=== PATIENT | female | born 1980 | race Caucasian/White ===

== ENCOUNTER 2017-05-07 21:09 | Emergency (ER) | payer OTHER ==
[~2017-05-07] VITALS: Ht 177.8 cm; Wt 77.1 kg
--- NOTE | ~2017-05-07 | EKG ---
PATIENT: RODRIGUEZ WILDER UNIT #: [id number] Ventricular Rate: 73 BPM Atrial Rate: 73 BPM P-R Interval: 152 ms QRS Duration: 80 ms Q-T Interval: 380 ms QTC Calculation(Bezet): 418 ms P [place]: 8 degrees Calculated R [place]: -4 degrees Calculated T [place]: 20 degrees Diagnosis Line: Normal sinus rhythm Diagnosis Line: Normal ECG Diagnosis Line: No previous ECGs available Diagnosis Line: Confirmed by NOVA PRECIADO MD ([id number]) on Diagnosis Line: 05/08/2017 12:39:28 PM INTERPRETING MD: OZZY SAM
--- NOTE | ~2017-05-07 | CT71 ---
[facility] A Service of [facility] & [facility] RADIOLOGY TEXT RESULTS PATIENT: RODRIGUEZ WILDER LOCATION: SED : 82 UNIT #: [id number] AGE: [address]: Darrion Marcum MD SEX: F ORDER DR: [id number] [address] [address] [id number] MR#: [id number] #: [id number] NAME: RODRIGUEZ WILDER : 1980 SEX: F STUDY DATE/TIME: 05/07/2017 22:28 UNIT: SED ROOM: STUDY DESCRIPTION: CT Head Wo Contrast Attending Physician: Darrion Marcum M.D. Ordering Physician: Darrion Marcum M.D. MEDICAL IMAGING REPORT This report is preliminary unless electronic signature is present. EXAM CT head, 05/07/2017. HISTORY Dizzy, short of air and disoriented. Two days duration. Prior history of hydrocephalus. TECHNIQUE CT head performed skull base through vertex without intravenous contrast. This CT exam was performed with one or more of the following radiation dose reduction techniques: automatic exposure control, adjustment of mA and/or kV according to patient size, and iterative reconstruction. COMPARISON No prior studies for comparison. Comparison with prior studies is strongly recommended. FINDINGS The brainstem is unremarkable. The cerebellum is normal in appearance. The cerebral hemispheres show overall preservation of jin matter-white matter differentiation. The patient has a right transparietal ventriculoperitoneal shunt which appears to terminate in the right paracentral frontal lobe region. I favor it terminates in the anterior body of the right lateral ventricle but the exact location of the tip is somewhat unclear. There is certainly no hydrocephalus. The ventricles are small in caliber overall. There is no sulcal or cisternal distension. In the posterior right thalamus, there is a somewhat linear calcification measuring about 8-9 mm in diameter. More anteriorly in the right thalamus immediately subjacent to the ventricular shunt catheter, there is an area of increased density overall measuring 1.5 cm x 7-8 mm. Along the medial and lateral aspects of this focus, there are dense calcifications. In the central portion of this focus, there is an area of hyperdensity but not STS. [facility] A Service of [facility] & [facility] RADIOLOGY TEXT RESULTS PATIENT: RODRIGUEZ WILDER LOCATION: SED : [birth year] UNIT #: [id number] AGE: [address]: Darrion Marcum MD SEX: F ORDER DR: clearly calcific density measuring 5-7 mm in diameter. Exact nature of this 5-7 mm hyperdensity unclear. There is no associated mass effect or surrounding edema. I cannot strictly exclude a focus of hemorrhage, though I favor that this is some form of change or parenchymal calcification. Comparison with prior studies strongly recommended. In the absence of prior studies for comparison, further assessment with MRI or short interval CT followup recommended. Remainder of basal ganglia unremarkable. There is no intra or extraaxial mass effect. The midline structures are nondisplaced. The intraorbital soft tissues are unremarkable. The visualized paranasal sinuses and mastoid air cells are clear. IMPRESSION 1. Finding discussed with Dr. Marcum immediately prior to this dictation. The patient has a right transparietal ventricular shunt. The tip terminates to the right of midline in the anterior frontal region. Precise termination point somewhat unclear but I favor that it terminates in the anterior body of the right lateral ventricle. There is no hydrocephalus. Overall, the ventricles appear somewhat diminished in overall caliber. Comparison with any prior studies would be useful to assess for chronicity of the low caliber ventricles. 2. In the right thalamus posteriorly, there is a linear 8-9 mm calcification. Just anterior to this dense calcification immediately subjacent to the ventricular catheter, there is an area of increased density measuring 7-15 mm in overall diameter. At its medial and lateral aspects, there are dense coarse calcifications. More centrally, there is a 5-7 mm of hyperdensity but not clearly calcific density. This 5-7 mm focus of increased density is of unclear etiology. It exerts no mass effect and there is no adjacent edema. I favor that it is fainter calcification, but I cannot strictly exclude a small focus of hemorrhage. Again, comparison with prior examinations would be useful. In the absence of prior studies to clarify this finding, I would recommend further evaluation with either MRI or short interval CT followup. Possibility of partially calcified thalamic neoplastic lesion is felt unlikely given lack of edema or mass effect. 3. Remainder of the cerebral hemispheres unremarkable. 4. See remainder of ancillary findings above. Dictated by... Darrion Gonzales M.D. THIS IS AN ELECTRONICALLY VERIFIED REPORT Darrion Gonzales M.D. at 05/10/2017 7:36 AM JSK/danaw [facility]. [facility] A Service of [facility] & [facility] RADIOLOGY TEXT RESULTS PATIENT: RODRIGUEZ WILDER LOCATION: [facility] : [birth year] UNIT #: [id number] AGE: [address]: Darrion Marcum MD SEX: F ORDER DR: TD: 05/08/2017 10:23 JOB #: [id number] MEDICAL IMAGING REPORT Page 1 of 1
[2017-05-07 22:23] LABS: URINE SOURCE CLEAN CATCH
[2017-05-07 22:25] LABS: URINE APPEARANCE CLEAR; URINE BLOOD NEG (NEG); URINE COLOR YELLOW; URINE GLUCOSE NEG (NORM); URINE KETONE TRACE (NEG); URINE LEUKOCYTE ESTERASE 1+ (NEG); URINE NITRATE NEG (NEG); URINE PH 6.5 (5-8); URINE PROTEIN TRACE (NEG); URINE SPECIFIC GRAVITY 1.025 (1.003-1.035)
[2017-05-07 22:27] LABS: MICRO INDICATED? YES; URINE BILIRUBIN NEG (NEG)
[2017-05-07 22:27] LABS: BASOPHIL% 0.4 % (0-2.5); DIFF IND NO; EOSINOPHIL# 0.1 X10e3 (0-0.7); HEMATOCRIT 40.3 % (35.0-45.0); HEMOGLOBIN 13.9 gm/dL (12.0-16.0); LYMPHOCYTE% 30.7 % (17.0-45.0); MEAN CELL VOLUME 90.3 FL (83-96); MEAN CORPUSCULAR HEMOGLOBIN 31.1 PG (28-34); MEAN CORPUSCULAR HGB CONC 34.5 g/dL (30-36); MEAN PLATELET VOLUME 9.7 FL (6.5-11.5); MONOCYTE# 0.4 X10e3 (0-1.0); MONOCYTE% 6.6 % (3.0-12.0); NEUTROPHIL# 3.9 X10e3 (1.5-7.1); NEUTROPHIL% 61.3 % (40-75); PLATELET COUNT 281 X10e3 (140-420); RED BLOOD COUNT 4.46 X10e (3.90-5.30); RED CELL DISTRIBUTION WIDTH 12.4 % (11.0-15.5); WHITE BLOOD COUNT 6.4 X10e3 (4.0-10.5)
[2017-05-07 22:28] LABS: URINE RBC 0-2 /[HPF] (0-2)
[2017-05-07 22:29] LABS: CULTURE INDICATED? YES; URINE BACTERIA 1+ (NEG); URINE CRYSTALS CALCIUM OXALATE /[HPF]; URINE MUCUS PRESENT; URINE SQUAMOUS EPITHELIAL CELL MODERATE /[HPF]
[2017-05-07 22:36] LABS: AMPHETAMINE NEG (NEG); BARBITURATES NEG (NEG); BENZODIAZEPINES NEG (NEG); COCAINE NEG (NEG); MARIJUANA NEG (NEG); OPIATES NEG (NEG); TRICYCLIC ANTIDEPRESSANTS NEG (NEG); U METHADONE NEG (NEG)
[2017-05-07 22:41] LABS: CALCIUM SERUM 8.9 mg/dL (8.4-10.2); GLOM FILT RATE Estimated 72.5 mL/min (>60); POTASSIUM 3.5 mmol/L (3.5-5.1)
[2017-05-07 23:23] LABS: INR 1.1; PROTHROMBIN TIME (PATIENT) 12.3 SECONDS (9.5-12.4)
[2017-05-07 23:30] LABS: PARTIAL THROMBOPLASTIN TIME 27.2 SECONDS (25.6-38.1)
[2017-05-09 14:26] LABS: POC - CKMB <1.0 ng/mL (0.0-7.9); POC - TROPONIN <0.05 ng/mL (<=0.05)
== END 2017-05-08 01:16 | disposition home or self-care (01) ==
LOC: SED 21:09
PROVIDERS: Emergency Medicine
DX: F41.1 Generalized anxiety disorder (principal); F32.9 Major depressive disorder, single episode, unspecified
CPT/HCPCS: 70450; 80048; 80307; 81003; 82553; 84484; 85025; 85610; 85730; 87086; 93005; 99284